=== PATIENT | male | born 1930 | race Hispanic/Latino ===

== ENCOUNTER 2021-05-01 13:15 | Inpatient (IN) | payer OTHER, MEDICARE, BC ==
[2021-05-01 14:54] LABS: #Eosinphils 0.1 thou/uL (0.0-0.7); #Lymphocytes 0.7 thou/uL (1.20-3.40); #Monocytes 0.3 thou/uL (0.11-0.59); %Basophils 0.2 % (0.0-1.0); %Eosinophils 1.3 % (0.0-10.0); %Lymphocytes 9.1 % (21.0-51.0); %Monocytes 3.1 % (0.0-10.0); %Neutrophils 86.3 % (42.0-75.0); Hemoglobin 11.8 g/dL (14.0-18.0); Mean Corpuscular HGB CONC 34.2 g/dL (32.0-36.0); Mean Corpuscular Volume 96.5 fL (78.0-98.0); Mean Platelet Volume 6.9 fL (7.4-10.4); Platelet Count 190 thou/uL (130-400); RBC Distribution Width 12.3 % (11.5-14.5); Red Blood Cell (RBC) Count 3.57 mill/uL (4.70-6.10); White Blood Cell (WBC) Count 8.1 thou/uL (4.8-10.8)
[2021-05-01 15:19] LABS: ALT (SGPT) 7 U/L (8-55); AST (SGOT) 11 U/L (5-34); Albumin 4.1 g/dL (3.4-4.8); Alkaline Phosphatase 76 U/L (40-110); Anion Gap 16 mmol/L (10-20); BUN (Urea Nitrogen) 18 mg/dL (8.4-25.7); Bilirubin, Total 0.4 mg/dL (0.2-1.2); Calc. Creatinine Clearance 0 mL/min (70-130); Calcium 9.3 mg/dL (7.8-10.44); Carbon Dioxide 20 mmol/L (23-31); Chloride 108 mmol/L (98-107); Globulin 3.6 g/dL (2.4-3.5); Glucose 133 mg/dL (83-110); Protein, Total 7.7 g/dL (5.8-8.1); Sodium 140 mmol/L (136-145)
[2021-05-01] MEDS ORDERED: Dextrose 50% Abboject 50 ML SYRINGE SLOW IVP PRN (15:55)
[2021-05-01] MEDS ORDERED: Ondansetron PF 4 MG/2 ML Vial IVP PRN ×2 (15:55→16:00)
[2021-05-01] MEDS ORDERED: Dextrose 5% in Water 1,000 ML IV PRN (15:55)
[2021-05-01] MEDS ORDERED: Morphine 2 MG/ML VIAL SLOW IVP PRN (15:55)
[2021-05-01] MEDS ORDERED: hydrALAZINE 20 MG/ML VIAL SLOW IVP PRN (15:55)
[2021-05-01] MEDS ORDERED: traMADol HCl 50 MG TAB PO PRN (16:00)
[2021-05-01] MEDS ORDERED: Cyclobenzaprine 10 MG TAB PO PRN (16:00)
[2021-05-01] MEDS ORDERED: Acetaminophen 325 MG TAB ONE (16:10)
[2021-05-01] MEDS ORDERED: HYDROcodone/Acetaminophen 5/325 mg Tablet ONE (16:10)
[2021-05-01 16:17] LABS: Bilirubin Negative (Negative); Blood, Urine 1+ (Negative); Clarity Turbid (Clear); Glucose, Urine (Dipstick) Normal (Negative); Ketone, Urine Negative (Negative); Leukocyte 500 Leu/uL (Negative); Nitrite Negative (Negative); Protein, Urine (Dipstick) 20 mg/dL (Neg-Trace); Specific Gravity, Urine 1.022 (1.002-1.036); Squamous Epithelial None Seen HPF (0-3); Urobilinogen Normal mg/dL (Less than 2); WBC/HPF Greater than 50 HPF (0-3); pH, Urine 5.5 (5.0-9.0)
[2021-05-01 16:18] LABS: Bacteria/HPF 3+ HPF (None Seen)
[2021-05-01] MEDS ORDERED: Ondansetron PF 4 MG/2 ML Vial ONE (16:30)
[2021-05-01] MEDS ORDERED: Morphine 2 MG/ML VIAL ONE (16:30)
[2021-05-01 16:53] LABS: Phosphorus 2.8 mg/dL (2.3-4.7)
[2021-05-01 21:32] LABS: SARS-CoV-2 NAA Rapid Test Not Detected (NotDetected)
[2021-05-01 23:07] VITALS: BMI 24.7
[2021-05-01] MEDS: Acetaminophen 500 MG TAB PO SCH (23:10)
[2021-05-01] MEDS: Senokot S 8.6-50 MG TAB PO SCH (23:11)
[2021-05-01] MEDS: Famotidine 20 MG TAB PO SCH (23:11)
[2021-05-01] MEDS: traMADol HCl 50 MG TAB PO SCH (23:11)
[2021-05-01] MEDS: Sodium Chloride 0.9% 1,000 ML IV SCH (23:53)
[2021-05-01] MEDS ORDERED: Sodium Chloride 0.9% 1,000 ML IV SCH (23:59)
[2021-05-02] MEDS: Acetaminophen 500 MG TAB PO SCH ×4 (00:40→19:29)
[2021-05-02] MEDS: traMADol HCl 50 MG TAB PO SCH ×4 (00:40→19:29)
[2021-05-02] MEDS: cefTRIAXone\\ROCEPHIN 1 GM in Sodium Chloride 0.9% 100 ML IVPB SCH (02:44)
[2021-05-02 05:08] LABS: #Eosinphils 0.3 thou/uL (0.0-0.7); #Monocytes 0.2 thou/uL (0.11-0.59); #Neutrophils 4.6 thou/uL (1.40-6.50); %Basophils 0.4 % (0.0-1.0); %Eosinophils 4.1 % (0.0-10.0); %Lymphocytes 16.8 % (21.0-51.0); %Monocytes 3.6 % (0.0-10.0); %Neutrophils 75.1 % (42.0-75.0); Hemoglobin 10.2 g/dL (14.0-18.0); Mean Corpuscular HGB CONC 32.9 g/dL (32.0-36.0); Mean Corpuscular Hemoglobin 31.7 pg (27.0-31.0); Mean Corpuscular Volume 96.3 fL (78.0-98.0); Platelet Count 156 thou/uL (130-400); RBC Distribution Width 12.3 % (11.5-14.5); Red Blood Cell (RBC) Count 3.21 mill/uL (4.70-6.10); White Blood Cell (WBC) Count 6.2 thou/uL (4.8-10.8)
[2021-05-02 05:33] LABS: Anion Gap 9 mmol/L (10-20); BUN (Urea Nitrogen) 22 mg/dL (8.4-25.7); Calc. Creatinine Clearance 36 mL/min (70-130); Calcium 8.7 mg/dL (7.8-10.44); Carbon Dioxide 24 mmol/L (23-31); Chloride 108 mmol/L (98-107); Glucose 116 mg/dL (83-110); Potassium 4.1 mmol/L (3.5-5.1); Sodium 137 mmol/L (136-145)
[2021-05-02] MEDS: Polyethylene Glycol 3350 17 GM Packet PO SCH (09:28)
[2021-05-02] MEDS: Senokot S 8.6-50 MG TAB PO SCH ×3 (09:37→20:48)
[2021-05-02] MEDS: Sodium Chloride 0.9% 1,000 ML IV SCH (09:37)
[2021-05-02] MEDS ORDERED: Fentanyl 100 MCG/2 ML VIAL ONE (15:54)
[2021-05-02] MEDS ORDERED: Lidocaine 1% PF 5 ML VIAL ONE (16:13)
[2021-05-02] MEDS ORDERED: PHENYLEPHRINE-NS 100 MCG/ML 10 ML SYRINGE ONE (16:13)
[2021-05-02] MEDS ORDERED: Ondansetron PF 4 MG/2 ML Vial ONE (16:13)
[2021-05-02] MEDS ORDERED: PROPOFOL 200 MG/20 ML VIAL ONE (16:13)
[2021-05-02] MEDS ORDERED: Dexamethasone 20 MG/5 ML VIAL ONE (16:13)
[2021-05-02] MEDS ORDERED: Rocuronium Bromide 10 MG/ML (10ML VIAL) ONE (16:13)
[2021-05-02] MEDS ORDERED: SUGAMMADEX SODIUM 200 MG/2 ML VIAL ONE (16:56)
[2021-05-02] MEDS ORDERED: Sterile Water 0 ML ONE (16:56)
[2021-05-02] MEDS ORDERED: Promethazine HCl 25 MG/ML VIAL IVPB PRN (17:32)
[2021-05-02] MEDS ORDERED: Ondansetron HCl/PF 4 MG/2 ML Vial IVP PRN (17:32)
[2021-05-02] MEDS ORDERED: Promethazine HCl 25 MG/ML VIAL IM PRN (17:32)
[2021-05-02] MEDS: Famotidine 20 MG TAB PO SCH (20:48)
[2021-05-03] MEDS: CEFAZOLIN 2 GM in Premix Bag 1 BAG IVPB SCH ×3 (00:38→16:09)
[2021-05-03] MEDS: traMADol HCl 50 MG TAB PO SCH ×4 (00:43→17:30)
[2021-05-03] MEDS: Acetaminophen 500 MG TAB PO SCH ×4 (00:43→17:30)
[2021-05-03] MEDS: cefTRIAXone\\ROCEPHIN 1 GM in Sodium Chloride 0.9% 100 ML IVPB SCH (01:56)
[2021-05-03 05:40] LABS: #Lymphocytes 0.7 thou/uL (1.20-3.40); #Monocytes 0.3 thou/uL (0.11-0.59); #Neutrophils 5.7 thou/uL (1.40-6.50); %Basophils 0.1 % (0.0-1.0); %Eosinophils 0.7 % (0.0-10.0); %Lymphocytes 9.9 % (21.0-51.0); %Monocytes 4.1 % (0.0-10.0); %Neutrophils 85.1 % (42.0-75.0); Hemoglobin 8.6 g/dL (14.0-18.0); Mean Corpuscular HGB CONC 33.5 g/dL (32.0-36.0); Mean Corpuscular Hemoglobin 32.3 pg (27.0-31.0); Mean Corpuscular Volume 96.5 fL (78.0-98.0); Mean Platelet Volume 6.9 fL (7.4-10.4); Platelet Count 131 thou/uL (130-400); RBC Distribution Width 12.1 % (11.5-14.5); Red Blood Cell (RBC) Count 2.65 mill/uL (4.70-6.10); White Blood Cell (WBC) Count 6.7 thou/uL (4.8-10.8)
[2021-05-03] MEDS: Senokot S 8.6-50 MG TAB PO SCH ×2 (08:19→20:35)
[2021-05-03] MEDS: Polyethylene Glycol 3350 17 GM Packet PO SCH (08:19)
[2021-05-03] MEDS: Aspirin 81 mg Enteric Coated Tablet PO SCH (20:35)
[2021-05-03] MEDS: Famotidine 20 MG TAB PO SCH (20:35)
[2021-05-03] MEDS: Ascorbic Acid 500 mg Chewable Tablet PO SCH (20:35)
[2021-05-04] MEDS: Acetaminophen 500 MG TAB PO SCH ×4 (00:44→17:32)
[2021-05-04] MEDS: traMADol HCl 50 MG TAB PO SCH ×4 (00:44→17:33)
[2021-05-04] MEDS: cefTRIAXone\\ROCEPHIN 1 GM in Sodium Chloride 0.9% 100 ML IVPB SCH (00:45)
[2021-05-04 05:32] LABS: #Eosinphils 0.4 thou/uL (0.0-0.7); #Monocytes 0.4 thou/uL (0.11-0.59); #Neutrophils 4.9 thou/uL (1.40-6.50); %Basophils 0.6 % (0.0-1.0); %Eosinophils 5.8 % (0.0-10.0); %Lymphocytes 15.2 % (21.0-51.0); %Monocytes 6.1 % (0.0-10.0); %Neutrophils 72.3 % (42.0-75.0); Mean Corpuscular HGB CONC 34.3 g/dL (32.0-36.0); Mean Corpuscular Hemoglobin 33.3 pg (27.0-31.0); Mean Corpuscular Volume 97.2 fL (78.0-98.0); Mean Platelet Volume 6.9 fL (7.4-10.4); Platelet Count 125 thou/uL (130-400); RBC Distribution Width 12.2 % (11.5-14.5); Red Blood Cell (RBC) Count 2.39 mill/uL (4.70-6.10); White Blood Cell (WBC) Count 6.7 thou/uL (4.8-10.8)
[2021-05-04] MEDS: Ferrous Sulfate 325 MG TAB PO SCH ×2 (08:05→17:32)
[2021-05-04] MEDS: Polyethylene Glycol 3350 17 GM Packet PO SCH (08:05)
[2021-05-04] MEDS: Senokot S 8.6-50 MG TAB PO SCH (08:05)
[2021-05-04] MEDS: Ascorbic Acid 500 mg Chewable Tablet PO SCH (08:05)
[2021-05-04] MEDS: Aspirin 81 mg Enteric Coated Tablet PO SCH (08:05)
[2021-05-04] MEDS ORDERED: Sulfameth/Trimethoprim DS 800-160mg TAB PO SCH (09:00)
[2021-05-04 10:39] VITALS: TEMP 97.7
[2021-05-04 16:11] VITALS: BP 115/54
== END 2021-05-04 18:25 | disposition swing bed (61) | DRG 481 ==
LOC: ERS 13:15 → ERHOLD 15:55 → SURG A 22:28
PROVIDERS: ADMIT Surgery; ATTEND Surgery
PROC: 0QS704Z Reposition Left Upper Femur with Internal Fixation Device, Open Approach (ICD-10-PCS; principal; 2021-05-02)
DX: S72.145A Nondisplaced intertrochanteric fracture of left femur, initial encounter for closed fracture (principal); N39.0 Urinary tract infection, site not specified; Z20.822 Contact with and (suspected) exposure to COVID-19; D64.9 Anemia, unspecified; W01.0XXA Fall on same level from slipping, tripping and stumbling without subsequent striking against object, initial encounter; Y92.242 Post office as the place of occurrence of the external cause; Z90.49 Acquired absence of other specified parts of digestive tract; Z85.46 Personal history of malignant neoplasm of prostate; Z90.79 Acquired absence of other genital organ(s)
CPT/HCPCS: 36415; 71045; 76000; 80048; 80053; 81003; 81015; 83735; 84100; 84484; 85025; 87077; 87086; 87186; 93005; 96374; 96375; C1713; G0390; J0690; J0696; J1100; J2270; J2405; J2704; J3010; J3490; U0002; U0005